=== PATIENT | female | born 1945 | race Caucasian/White ===

== ENCOUNTER 2018-12-01 15:58 | Emergency (ER) | payer OTHER ==
[~2018-12-01] VITALS: Ht 162.6 cm; Wt 63.2 kg
[2018-12-01 16:00] VITALS: TEMP 98.9
[2018-12-01 16:17] LABS: HEMATOCRIT 46.6 % (37.0-47.0); HEMOGLOBIN 15.5 g/dl (12.5-16.0); MEAN CELL VOLUME 92 fl (80.0-100.0); MEAN CORPUSCULAR HEMOGLOBIN 31 pg (27.0-31.0); MEAN CORPUSCULAR HGB CONC 33 g/dl (33.0-37.0); PLATELET COUNT 281 K/mm3 (130-400); RED BLOOD COUNT 5.07 M/mm3 (4.10-5.30); REDCELL DISTRIBUTION WIDTH-CV 14.2 % (11.5-14.5)
[2018-12-01 16:19] LABS: INR 1.1 (0.8-3.0)
[2018-12-01 16:32] LABS: ALBUMIN 4.4 gm/dL (3.5-5.0); BILIRUBIN,TOTAL 0.8 mg/dL (0.0-1.0); CALCIUM 9.2 mg/dL (8.4-10.2); CREATININE, serum 0.75 (0.52-1.25); POTASSIUM 3.6 mmol/L (3.4-5.0); TOTAL PROTEIN 7.2 gm/dL (6.4-8.2)
[2018-12-01 17:12] LABS: COLLECTION METHOD CLEAN CATCH
[2018-12-01 17:18] LABS: BAND 7 % (0-10); EOSINOPHIL 1 % (0-4); LYMPHOCYTE 31 % (20.0-51.0); NEUTROPHILS 55 % (42.0-75.2); PLATELET ESTIMATE NORMAL (NORMAL)
[2018-12-01 17:19] LABS: MUCOUS Present /lpf; PH 5 (5-8); SQUAMOUS EPITHELIAL 0-2 /hpf; URINE APPEARANCE Clear; URINE BACTERIA None Seen /hpf; URINE BILIRUBIN Negative (NEGATIVE); URINE BLOOD 2+ (NEGATIVE); URINE COLOR Yellow; URINE GLUCOSE Negative (NEGATIVE); URINE KETONE Negative (NEGATIVE); URINE LEUKOCYTE ESTERASE Negative (NEGATIVE); URINE NITRATE Negative (NEGATIVE); URINE PROTEIN(semi-quant) Negative (NEGATIVE); URINE UROBILINOGEN Negative (NEGATIVE)
[2018-12-01 18:03] VITALS: BP 156/80; PULSE 95
[2018-12-02] MEDS ORDERED: ZESTRIL 5MG5 MG PO (01:10)
[2018-12-02] MEDS ORDERED: PRADAXA75 MG PO (01:10)
== END 2018-12-01 18:03 | disposition short-term general hospital (02) ==
LOC: COL.ER 15:58
PROVIDERS: Family Medicine
DX: S12.200A Unspecified displaced fracture of third cervical vertebra, initial encounter for closed fracture (principal); S12.400A Unspecified displaced fracture of fifth cervical vertebra, initial encounter for closed fracture; S22.059A Unspecified fracture of T5-T6 vertebra, initial encounter for closed fracture; S32.049A Unspecified fracture of fourth lumbar vertebra, initial encounter for closed fracture; R40.2412 Glasgow coma scale score 13-15, at arrival to emergency department; V49.50XA Passenger injured in collision with unspecified motor vehicles in traffic accident, initial encounter
CPT/HCPCS: A4314; C9132; J2405; J2765; J3010; J7030; Q9967